=== PATIENT | female | born 1990 | race American Indian/Alaskan Native ===

== ENCOUNTER → 2016-08-12 | Outpatient (CLI) | payer BC ==
--- NOTE | 2016-08-12 15:58 | US ---
Examination: Greater than 14 weeks transabdominal ultrasound with color Doppler and M-mode evaluatio n. HISTORY: FINDINGS: LMP is 03/05/2016 EVALUATION: Anterior placenta with a cephalic lie and grade 1. Visually amniotic fluid is with in normal limits. Three-vessel cord is seen. Ventricles are within normal limits. Four chamber heart is noted. Heart rate is 145 beats per minute. BIOMETRY AND GESTATIONAL AGE: Biparietal diameter 5.3 cm. The abdominal circumference measures 17.8 cm. The femoral length is 4.0 cm with head circumference of 20.5 cm. Gestational age is 22 weeks and 3 days. The expected date of delivery is approximately 12/13/2016. Fetus weight is 522 grams. Overall the fetus is within the 32nd percentile. Other detail anatomy summarized into PACs sheet after the images. No anatomical anomalies. IMPRESSION: Single active IU with cephalic fetus. Anterior placenta with grade 1, no placenta previa. No anomalies are seen. Amniotic fluid appears within normal limits.
--- NOTE | 2016-08-18 17:26 | US ---
Examination: Greater than 14 weeks transabdominal ultrasound with color Doppler and M-mode evaluation. HISTORY: FINDINGS: LMP is 03/05/2016 EVALUATION: Anterior placenta with a cephalic lie and grade 1. Visually amniotic fluid is within normal limits. Three-vessel cord is seen. Ventricles are within normal limits. Four chamber heart is noted. Heart rate is 145 beats per minute. BIOMETRY AND GESTATIONAL AGE: Biparietal diameter 5.3 cm. The abdominal circumference measures 17.8 cm. The femoral length is 4.0 cm with head circumference of 20.5 cm. Gestational age is 22 weeks and 3 days. The expected date of delivery is approximately 12/13/2016. Fetus weight is 522 grams. Overall the fetus is within the 32nd percentile. Other detail anatomy summarized into PACs sheet after the images. No anatomical anomalies. IMPRESSION: Single active IU with cephalic fetus. Anterior placenta with grade 1, no placenta previa. No anomalies are seen. Amniotic fluid appears within normal limits. MTDD
== END ==
LOC: MW.US 13:50
PROVIDERS: ATTEND Advanced Practice Midwife
DX: Z36 Encounter for antenatal screening of mother (principal); Z34.92 Encounter for supervision of normal pregnancy, unspecified, second trimester
CPT/HCPCS: 76805; 76805-26

== ENCOUNTER 2016-12-05 09:45 | Inpatient (IN) | payer BC ==
[2016-12-05] MEDS ORDERED: Sodium Chloride 0.9% 10 ML Syringe FLUSH PRN (10:03)
[2016-12-05] MEDS ORDERED: Sodium Chloride 0.9% 2.5 ML Syringe FLUSH PRN (10:03)
--- NOTE | 2016-12-05 10:07 | PCM.LDHP ---
L&D History of Present Illness - General Date of Service: 12/05/16 Admit Problem/Dx: Patient Status Order with Admit Dx/Problem 12/05/16 10:03 Patient Status [ADT] Routine Admission Diagnosis/Problem Admission Diagnosis/Problem Source of Information: Patient History Limitations: Reports: No Limitations - History of Present Illness Improves with: Reports: None Worsens with: Reports: None Associated Symptoms: Reports: N - Related Data Allergies/Adverse Reactions: Allergies Allergy/AdvReac Type Severity Reaction Status Date / Time latex Allergy Rash Verified 11/29/16 12:23 sulfamethoxazole Allergy Hives Verified 09/10/13 00:00 [From ] trimethoprim [From ] Allergy Hives Verified 09/10/13 00:00 Home Medications: Home Meds PNV95/Ferrous Fumarate/FA [ Vitamins Tablet] 1 tab PO DAILY 11/29/16 [ History] Past Medical History - Past Health History Medical/Surgical History: Denies Medical/Surgical History Gastrointestinal History: Reports: Other (See Below) Other Gastrointestinal History: 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: Musculoskeletal History: Reports: Fracture Other Musculoskeletal History: hx fx leg at 3 yrs old Psychiatric History: Reports: Depression Dermatologic History: Reports: Eczema - Past Surgical History Head Surgeries/Procedures: Reports: None Social & Family History - Tobacco Use Smoking Status *Q: Former Smoker Years of Tobacco use: 3 Used Tobacco, but Quit: Yes Month Tobacco Last Used: quit smoking 3 yrs ago Second Hand Smoke Exposure: Yes - Alcohol Use Days Per Week of Alcohol Use: 0 - Recreational Drug Use Recreational Drug Use: No H&P Review of Systems - Review of Systems: Review Of Systems: See Below General: Reports: No Symptoms HEENT: Reports: No Symptoms Pulmonary: Reports: No Symptoms Cardiovascular: Reports: No Symptoms Gastrointestinal: Reports: No Symptoms Genitourinary: Reports: No Symptoms Musculoskeletal: Reports: No Symptoms Skin: Reports: No Symptoms Psychiatric: Reports: No Symptoms Neurological: Reports: No Symptoms Hematologic/Lymphatic: Reports: No Symptoms Immunologic: Reports: No Symptoms L&D Exam - Exam Exam: See Below - Vital Signs Weight: 77.111 kg - OB Specific Fundal Height In cm: 38 Contraction Intensity: Mild Movement: Active Heart Tones: Present Presentation: Vertex - Exam General: Alert, Oriented HEENT: PERRLA, Conjunctiva Clear, EACs Clear, EOMI, Hearing Intact, Mucosa Moist & Central, Nares Patent, Normal Nasal Septum, Posterior Pharynx Clear, TMs Clear Neck: Supple, Trachea Midline Lungs: Clear to Auscultation, Normal Respiratory Effort Cardiovascular: Regular Rate, Regular Rhythm GI/Abdominal Exam: Normal Bowel Sounds, Soft, Non-Tender, No Organomegaly, No Distention, No Abnormal Bruit, No Mass, Pelvis Stable Rectal Exam: Normal Exam, Normal Rectal Tone Genitourinary: Normal external exam, Normal bimanual exam, Normal speculum exam Back Exam: Normal Inspection, Full Range of Motion Extremities: Normal Inspection, Normal Range of Motion, Non-Tender, No Pedal Edema, Normal Capillary Refill Skin: Warm, Dry, Intact Neurological: Cranial Nerves Intact, Reflexes Equal Bilateral Psychiatric: Alert, Normal Affect, Normal Mood Problem List Initiated/Reviewed/Updated: Yes Orders Last 24hrs: Active Orders 24 hr Category Date Time Status Patient Status [ADT] Routine ADT 12/05/16 10:03 Ordered Non Stress Test [RC] PER UNIT ROUTINE Care 12/05/16 10:03 Ordered Procedure Site Prep Instruct [RC] ASDIRECTED Care 12/05/16 10:03 Ordered Up ad Tori [RC] ASDIRECTED Care 12/05/16 10:03 Ordered Verify Patient Consent Obtain [RC] ASDIRECTED Care 12/05/16 10:03 Ordered Vital Signs [RC] PER UNIT ROUTINE Care 12/05/16 10:03 Ordered CBC W/O DIFF,HEMOGRAM [HEME] Routine Lab 12/05/16 10:03 Ordered TYPE AND SCREEN [BBK] Routine Lab 12/05/16 10:03 Ordered Citric Acid/Sodium Citrate [Bicitra Solution] Med 12/05/16 10:15 Ordered 30 ml PO .ONCE Lactated Ringers [Ringers, Lactated] 1,000 ml Med 12/05/16 10:15 Ordered IV .BOLUS Sodium Chloride 0.9% [Saline Flush] Med 12/05/16 10:03 Ordered 10 ml FLUSH ASDIRECTED PRN Sodium Chloride 0.9% [Saline Flush] Med 12/05/16 10:03 Ordered 2.5 ml FLUSH ASDIRECTED PRN Peripheral IV Insertion Adult [OM.PC] Routine Oth 12/05/16 10:03 Ordered Schedule Procedure [COMM] Per Unit Routine Oth 12/05/16 10:03 Ordered Resuscitation Status Routine Resus Stat 12/05/16 10:03 Ordered Assessment/Plan Comment:: Term admitted for elective repeat section
[2016-12-05] MEDS ORDERED: Citric Acid/Sodium Citrate Solution 30 ML Cup PO SCH (10:15)
[2016-12-05] MEDS: Lactated Ringers 1,000 ML IV SCH ×2 (10:25→11:13)
[2016-12-05] MEDS ORDERED: Morphine PF 10 MG/10 ML SDV ONE (10:41)
[2016-12-05] MEDS ORDERED: Oxytocin/Lactated Ringers 30 UNIT/500 ML BAG ONE (10:54)
--- NOTE | 2016-12-05 11:15 | PCM.PREANE ---
Preanesthetic Assessment - Anesthesia/Transfusion/Family Hx Anesthesia History: Prior Anesthesia Without Reaction (Epidural only) Family History of Anesthesia Reaction: No Transfusion History: No Prior Transfusion(s) Intubation History: Unknown - Review of Systems General: No Symptoms Pulmonary: No Symptoms Cardiovascular: No Symptoms Gastrointestinal: No Symptoms Neurological: No Symptoms Other: Reports: Anxiety (Pt states she is anxious - happy that her significant other will be with her during the and discussed sedation after baby is out) - Physical Assessment Height: 5 ft 6 in Weight: 170 lb ASA Class: 2 Mental Status: Alert & Oriented x3 Airway Class: Mallampati = 2 Dentition: Reports: Normal Dentition Thyro-Mental Finger Breadths: 3 Mouth Opening Finger Breadths: 3 ROM/Head Extension: Full Lungs: Clear to Auscultation, Normal Respiratory Effort Cardiovascular: Regular Rate, Regular Rhythm - Lab Values: Laboratory Last Values WBC 11.34 K/uL (4.0-11.0) H 12/05/16 10:22 RBC 4.43 M/uL (4.30-5.90) 12/05/16 10:22 Hgb 13.1 g/dL (12.0-16.0) 12/05/16 10:22 Hct 38.8 % (36.0-46.0) 12/05/16 10:22 MCV 87.6 fL (80.0-98.0) 12/05/16 10:22 MCH 29.6 pg (27.0-32.0) 12/05/16 10:22 MCHC 33.8 g/dL (31.0-37.0) 12/05/16 10:22 RDW Std Deviation 45.6 fl (28.0-62.0) 12/05/16 10:22 RDW Coeff of Curly 14 % (11.0-15.0) 12/05/16 10:22 Plt Count 177 K/uL (150-400) 12/05/16 10:22 MPV 11.40 fL (7.40-12.00) 12/05/16 10:22 Nucleated RBC % 0.0 /100WBC 12/05/16 10:22 Nucleated RBCs # 0 K/uL 12/05/16 10:22 - Allergies Allergies/Adverse Reactions: Allergies Allergy/AdvReac Type Severity Reaction Status Date / Time latex Allergy Rash Verified 11/29/16 12:23 sulfamethoxazole Allergy Hives Verified 09/10/13 00:00 [From Septra] trimethoprim [From Septra] Allergy Hives Verified 09/10/13 00:00 - Blood Blood Available: No Product(s) Available: None - Anesthesia Plan Free Text/Narrative:: SAB with backup GA if failed block - Acknowledgements Anesthesia Type Planned: Spinal Pt an Appropriate Candidate for the Planned Anesthesia: Yes Alternatives and Risks of Anesthesia Discussed w Pt/Guardian: Yes Pt/Guardian Understands and Agrees with Anesthesia Plan: Yes PreAnesthesia Questionnaire - Past Health History Medical/Surgical History: Denies Medical/Surgical History Gastrointestinal History: Reports: Other (See Below) Other Gastrointestinal History: 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: Musculoskeletal History: Reports: Fracture Other Musculoskeletal History: hx fx leg at 3 yrs old Psychiatric History: Reports: Depression Dermatologic History: Reports: Eczema - Past Surgical History Head Surgeries/Procedures: Reports: None - SUBSTANCE USE Smoking Status *Q: Former Smoker Tobacco Use Within Last Twelve Months: No Second Hand Smoke Exposure: Yes Days Per Week of Alcohol Use: 0 Recreational Drug Use History: No - HOME MEDS Home Medications: Home Meds PNV95/Ferrous Fumarate/FA [ Vitamins Tablet] 1 tab PO DAILY 11/29/16 [ History] - CURRENT (IN HOUSE) MEDS Current Meds: Current Medications Citric Acid/Sodium Citrate (Bicitra Solution) 30 ml PO .ONCE TRACIE Last Admin: 12/05/16 10:54 Dose: 30 ml Lactated Ringer's (Ringers, Lactated) 1,000 mls @ 500 mls/hr IV .BOLUS TRACIE Last Admin: 12/05/16 10:25 Dose: 500 mls/hr Sodium Chloride (Saline Flush) 10 ml FLUSH ASDIRECTED PRN PRN Reason: Keep Vein Open Sodium Chloride (Saline Flush) 2.5 ml FLUSH ASDIRECTED PRN PRN Reason: Keep Vein Open Discontinued Medications Oxytocin/Lactated Ringer's (Pitocin In Lr 30 Units/500 Ml) Confirm Administered Dose 30 unit in 500 mls @ as directed .ROUTE .STK-MED ONE Stop: 12/05/16 10:55 Morphine Sulfate (Duramorph Pf) Confirm Administered Dose 10 mg .ROUTE .STK-MED ONE Stop: 12/05/16 10:42
[2016-12-05] MEDS ORDERED: ceFAZolin 2 GM in Premix Bag 1 BAG IV ONE (11:17)
[2016-12-05] MEDS ORDERED: fentaNYL 100 MCG/2 ML SDV ONE (12:06)
[2016-12-05] MEDS ORDERED: ePHEDrine 50 MG/ML SDV ONE (12:06)
[2016-12-05] MEDS ORDERED: Octyl 2-Cyanoacrylate 1 Tube ONE (12:30)
[2016-12-05] MEDS ORDERED: Bisacodyl 10 MG Supp RECTAL PRN (12:34)
[2016-12-05] MEDS ORDERED: diphenhydrAMINE 50 MG/ML SDV IVPUSH PRN (12:34)
[2016-12-05] MEDS ORDERED: Lanolin 100% Cream 7 GM Tube TOP PRN (12:34)
[2016-12-05] MEDS ORDERED: Acetaminophen/oxyCODONE 325-5 MG Tab PO PRN ×2 (12:34→12:49)
--- NOTE | 2016-12-05 12:37 | PCM.OPNOTE ---
- General Post-Op/Procedure Note Date of Surgery/Procedure: 12/05/16 Operative Procedure(s): Primary C/section Pre Op Diagnosis: Term Post-Op Diagnosis: Same Anesthesia Technique: Spinal Primary Surgeon: Abhijeet Serrano EBL in mLs: 700 Complications: None Condition: Good
[2016-12-05] MEDS ORDERED: Lactated Ringers 1,000 ML IV SCH (12:45)
[2016-12-05] MEDS ORDERED: Ondansetron 4 MG/2 ML SDV IVPUSH PRN (12:49)
[2016-12-05] MEDS ORDERED: Nalbuphine 10 MG/1 ML Vial IVPUSH PRN (12:50)
[2016-12-05] MEDS ORDERED: Naloxone 0.4 MG/ML Syringe IVPUSH PRN (12:50)
[2016-12-05] MEDS: Ondansetron 4 MG/2 ML SDV IV PRN ×2 (12:52→19:24)
--- NOTE | 2016-12-05 13:06 | PCM.POSTAN ---
POST ANESTHESIA ASSESSMENT - MENTAL STATUS Mental Status: Alert, Oriented - VITAL SIGNS Pulse Rate: 52 SaO2: 99 Resp Rate: 14 Blood Pressure: 115/70 - RESPIRATORY Respiratory Status: Respiratory Rate WNL, Airway Patent, O2 Saturation Stable, Supplemental Oxygen (per nc) - CARDIOVASCULAR CV Status: Pulse Rate WNL, Blood Pressure Stable - GASTROINTESTINAL GI Status: No Symptoms - PAIN Pain Score: 0 (spinal still intact) - POST OP HYDRATION Hydration Status: Adequate & Stable - OBSERVATIONS Free Text/Narrative:: pt doing better after receiving zofran. VSS. No complaints at this time.
[2016-12-05] MEDS: Ketorolac 30 MG/ML SDV IVPUSH SCH ×2 (13:09→19:12)
--- NOTE | 2016-12-06 00:54 | OR ---
SURGEON: Abhijeet Serrano MD DATE OF PROCEDURE: POSTOPERATIVE DIAGNOSIS: Term , primary low transverse section. POSTOP DIAGNOSIS: Term , primary low transverse section. OPERATION PERFORMED: Primary low transverse section. HEAD OF ART: Palma Bucio RN. ANESTHESIA: Spinal, Linda Quintanilla and Dr. Madden. ESTIMATED BLOOD LOSS: 700 mL. COMPLICATION: None. FINDINGS: Female fetus. score reported to be 9 and 9. Normal uterus, tubes, and ovaries. INDICATION FOR SURGERY: This patient is para 1-0-0-1. She had a previous child delivered vaginally, but she had a fourth degree laceration complicated by dehiscence of the fourth degree incision, which has required multiple repair for her perineal area. The patient elected to have a primary low transverse section at this time. PROCEDURE IN DETAIL: The patient was brought to the OR, properly identified, and after adequate level of spinal anesthesia, with a Fagan catheter in the bladder, the patient prepped and draped in sterile fashion as usual. Time-out was made, and then low transverse Pfannenstiel skin incision was done. Cyril's fascia and rectus fascia were opened in direction of the incision. The 2 recti muscles were and the peritoneal cavity was entered. Bladder flap was raised in the usual manner pushing the bladder away from the lower uterine segment. Low transverse uterine incision was done and extended manually with the hand. The fetus was in a vertex position, delivered this way without any problem. The fetus cried immediately. It was a female and score later on reported to be 9 and 9. The placenta delivered spontaneous, complete, and intact, and then repair of the lower uterine segment was done with 2-0 Vicryl continuous interlocking in 2 layers. The peritoneal cavity evacuated completely from all blood and blood clot and closed with 2-0 Vicryl continuous and 3-0 Vicryl continuous, and then the rectus fascia closed with #1 PDS double strand continuous, the Cyril's fascia with 3-0 Vicryl continuous, and the skin closed skin clips, Insorb, and Dermabond. Instrument and sponge count was correct. The patient tolerated the procedure well and went to recovery room in stable general condition. FELIPE / OZ /[id number]
[2016-12-06] MEDS: Ketorolac 30 MG/ML SDV IVPUSH SCH ×3 (01:33→13:10)
[2016-12-06] MEDS: Ondansetron 4 MG/2 ML SDV IV PRN ×2 (01:34→07:55)
--- NOTE | 2016-12-06 07:46 | PCM48HPAN ---
Post Anesthesia Note - EVALUATION WITHIN 48HRS OF ANESTHETIC Vital Signs in Normal Range: Yes Patient Participated in Evaluation: Yes Respiratory Function Stable: Yes Airway Patent: Yes Cardiovascular Function Stable: Yes Hydration Status Stable: Yes Pain Control Satisfactory: Yes Nausea and Vomiting Control Satisfactory: Yes Mental Status Recovered: Yes - COMMENTS/OBSERVATIONS Free Text/Narrative:: Pt doing well this AM. VSS. No reports of nausea and pt reports good pain control with scheduled medications. No apparent anesthesia complications.
[2016-12-06] MEDS: Docusate Sodium 100 MG Cap PO SCH ×2 (08:04→21:08)
--- NOTE | 2016-12-06 10:02 | PCM.PNPP ---
- General Info Date of Service: 12/06/16 Functional Status: Reports: Pain Controlled - Review of Systems General: Reports: No Symptoms HEENT: Reports: No Symptoms Pulmonary: Reports: No Symptoms Cardiovascular: Reports: No Symptoms Gastrointestinal: Reports: No Symptoms Genitourinary: Reports: No Symptoms Musculoskeletal: Reports: No Symptoms Skin: Reports: No Symptoms Neurological: Reports: No Symptoms Psychiatric: Reports: No Symptoms - General Info Date of Service: 12/06/16 - Patient Data Vital Signs - Most Recent: Last Vital Signs Temp 36.6 C 12/06/16 08:00 Pulse 71 12/06/16 08:00 Resp 16 12/06/16 08:00 BP 111/61 12/06/16 08:00 Pulse Ox 94 L 12/06/16 08:00 Weight - Most Recent: 77.111 kg I&O - Last 24 Hours: Intake & Output 12/05/16 12/06/16 12/06/16 22:59 06:59 14:59 Output Total 1900 Balance -1900 Lab Results - Last 24 Hours: Laboratory Results - last 24 hr 12/05/16 12/05/16 12/06/16 Range/Units 10:22 10:22 05:55 WBC 11.34 H (4.0-11.0) K/uL RBC 4.43 (4.30-5.90) M/uL Hgb 13.1 11.5 L (12.0-16.0) g/dL Hct 38.8 34.9 L (36.0-46.0) % MCV 87.6 (80.0-98.0) fL MCH 29.6 (27.0-32.0) pg MCHC 33.8 (31.0-37.0) g/dL RDW Std Deviation 45.6 (28.0-62.0) fl RDW Coeff of Curly 14 (11.0-15.0) % Plt Count 177 (150-400) K/uL MPV 11.40 (7.40-12.00) fL Nucleated RBC % 0.0 /100WBC Nucleated RBCs # 0 K/uL Blood Type A POSITIVE Antibody Screen NEGATIVE Med Orders - Current: Current Medications Bisacodyl (Dulcolax) 10 mg RECTAL .ONCE PRN PRN Reason: Constipation Citric Acid/Sodium Citrate (Bicitra Solution) 30 ml PO .ONCE TRACIE Last Admin: 12/05/16 10:54 Dose: 30 ml Diphenhydramine HCl (Benadryl) 25 mg IVPUSH Q6H PRN PRN Reason: Itching or Nausea Last Admin: 12/05/16 14:37 Dose: 25 mg Docusate Sodium (Colace) 100 mg PO BID [facility] Last Admin: 12/06/16 08:04 Dose: 100 mg Emollient Ointment (Lansinoh Hpa) 0 gm TOP ASDIRECTED PRN PRN Reason: Sore Nipples Lactated Ringer's (Ringers, Lactated) 1,000 mls @ 500 mls/hr IV .BOLUS [facility] Last Admin: 12/05/16 11:13 Dose: 500 mls/hr Lactated Ringer's (Ringers, Lactated) 1,000 mls @ 125 mls/hr IV ASDIRECTED [facility] Last Admin: 12/05/16 14:43 Dose: 125 mls/hr Ibuprofen (Motrin) 800 mg PO Q8H PRN PRN Reason: mild pain or fever Ketorolac Tromethamine (Toradol) 30 mg IVPUSH Q6H [facility] Stop: 12/06/16 12:46 Last Admin: 12/06/16 08:01 Dose: 30 mg Nalbuphine HCl (Nubain) 2.5 mg IVPUSH Q3H PRN PRN Reason: Pruritis Stop: 12/06/16 12:51 Naloxone HCl (Narcan) 0.1 mg IVPUSH ONETIME PRN PRN Reason: RR<6 WITH STIMULATION Stop: 12/06/16 12:53 Ondansetron HCl (Zofran) 4 mg IV Q4H PRN PRN Reason: Nausea/Vomiting Last Admin: 12/06/16 07:55 Dose: 4 mg Ondansetron HCl (Zofran) 4 mg IVPUSH .ONETIME PRN PRN Reason: Nausea Oxycodone/Acetaminophen (Percocet 325-5 Mg) 1 tab PO Q4H PRN PRN Reason: Pain (moderate 4-6) Oxycodone/Acetaminophen (Percocet 325-5 Mg) 2 tab PO Q4H PRN PRN Reason: Pain (moderate 4-6) Oxycodone/Acetaminophen (Percocet 325-5 Mg) 1 tab PO .Q4HRS PRN PRN Reason: Breakthrough Pain Stop: 12/06/16 12:00 Last Admin: 12/06/16 05:03 Dose: 1 tab Sodium Chloride (Saline Flush) 10 ml FLUSH ASDIRECTED PRN PRN Reason: Keep Vein Open Sodium Chloride (Saline Flush) 2.5 ml FLUSH ASDIRECTED PRN PRN Reason: Keep Vein Open Discontinued Medications Ephedrine Sulfate (Ephedrine Sulfate) Confirm Administered Dose 50 mg .ROUTE .STK-MED ONE Stop: 12/05/16 12:07 Fentanyl (Sublimaze) Confirm Administered Dose 100 mcg .ROUTE .STK-MED ONE Stop: 12/05/16 12:07 Oxytocin/Lactated Ringer's (Pitocin In Lr 30 Units/500 Ml) Confirm Administered Dose 30 unit in 500 mls @ as directed .ROUTE .STK-MED ONE Stop: 12/05/16 10:55 Cefazolin Sodium/Dextrose 2 gm (/ Premix) 50 mls @ 100 mls/hr IV ONETIME ONE Stop: 12/05/16 11:46 Morphine Sulfate (Duramorph Pf) Confirm Administered Dose 10 mg .ROUTE .STK-MED ONE Stop: 12/05/16 10:42 Octyl Cyanoacrylate (Dermabond Advance) Confirm Administered Dose 1 applic .ROUTE .STK-MED ONE Stop: 12/05/16 12:31 - Infant Interaction Infant Disposition, : in Room with Family Infant Interaction: Holding Feeding: Attempted ; Nursed Fair/Poor Support Person: - Recovery Exam Fundal Tone: Firm Fundal Level: 1 Fingerbreadths Below Umbilicus Fundal Placement: Midline Lochia Amount: Small Lochia Color: Rubra/Red Perineum Description: Intact, Minimal Bruising/Swelling Episiotomy/Laceration: None Bladder Status: Indwelling Catheter in Place Urinary Elimination: Indwelling Catheter - Exam General: Alert, Oriented HEENT: Pupils Equal Neck: Supple Lungs: Clear to Auscultation, Normal Respiratory Effort Cardiovascular: Regular Rate, Regular Rhythm GI/Abdominal Exam: Normal Bowel Sounds, Soft, Non-Tender, No Organomegaly, No Distention, No Abnormal Bruit, No Mass, Pelvis Stable Extremities: Normal Inspection, Normal Range of Motion, Non-Tender, No Pedal Edema, Normal Capillary Refill Skin: Warm, Dry, Intact Wound/Incisions: Healing Well Neurological: No New Focal Deficit Psy/Mental Status: Alert, Normal Affect, Normal Mood - Problem List Review Problem List Initiated/Reviewed/Updated: Yes - My Orders Last 24 Hours: My Active Orders 12/05/16 10:03 Up ad Tori [RC] ASDIRECTED Sodium Chloride 0.9% [Saline Flush] 10 ml FLUSH ASDIRECTED PRN Sodium Chloride 0.9% [Saline Flush] 2.5 ml FLUSH ASDIRECTED PRN Peripheral IV Insertion Adult [OM.PC] Routine Schedule Procedure [COMM] Per Unit Routine Resuscitation Status Routine 12/05/16 10:15 Citric Acid/Sodium Citrate [Bicitra Solution] 30 ml PO .ONCE Lactated Ringers [Ringers, Lactated] 1,000 ml IV .BOLUS 12/05/16 12:34 Patient Status [ADT] Routine Ambulate [RC] PER UNIT ROUTINE Communication Order [RC] PER UNIT ROUTINE Communication Order [RC] PER UNIT ROUTINE Communication Order [RC] Per Unit Routine May Shower [RC] ASDIRECTED RT Incentive Spirometry [RC] Q2HWA Acetaminophen/oxyCODONE [Percocet 325-5 MG] 1 tab PO Q4H PRN Acetaminophen/oxyCODONE [Percocet 325-5 MG] 2 tab PO Q4H PRN Bisacodyl [Dulcolax] 10 mg RECTAL .ONCE PRN Ibuprofen [Motrin] 800 mg PO Q8H PRN Lanolin [Lansinoh HPA] See Dose Instructions TOP ASDIRECTED PRN Ondansetron [Zofran] 4 mg IV Q4H PRN diphenhydrAMINE [Benadryl] 25 mg IVPUSH Q6H PRN Assess Lochia [WOMSER] Per Unit Routine Assess Uterine Involution [WOMSER] Per Unit Routine Breast Pump [WOMSER] Per Unit Routine Peripheral IV Discontinue [OM.PC] Routine Sequential Compression Device [OM.PC] Per Unit Routine 12/05/16 12:35 Antiembolic Devices [RC] PER UNIT ROUTINE 12/05/16 12:45 Ketorolac [Toradol] 30 mg IVPUSH Q6H Lactated Ringers [Ringers, Lactated] 1,000 ml IV ASDIRECTED 12/05/16 21:00 Docusate Sodium [Colace] 100 mg PO BID 08/29/17 Breakfast Regular Diet [DIET] - Plan Plan:: Term admitted for elective repeat section
[2016-12-06] MEDS: Acetaminophen/oxyCODONE 325-5 MG Tab PO PRN ×2 (17:31→21:48)
[2016-12-06] MEDS: Ibuprofen 800 MG Tab PO PRN (21:09)
[2016-12-07] MEDS: Acetaminophen/oxyCODONE 325-5 MG Tab PO PRN ×3 (03:35→11:59)
[2016-12-07 04:26] VITALS: BP 118/70
[2016-12-07] MEDS: Ibuprofen 800 MG Tab PO PRN (07:00)
[2016-12-07] MEDS: Docusate Sodium 100 MG Cap PO SCH (08:05)
--- NOTE | 2016-12-07 09:03 | PCM.DCSUM1 ---
Discharge Summary - Discharge Data Discharge Date: 12/07/16 Discharge Disposition: Home, Self-Care 01 Condition: Good - Patient Summary/Data Operative Procedure(s) Performed: Primary C/section - Patient Instructions Diet: Usual Diet as Tolerated Showering/Bathing: August Shower Wound/Incision Care: Keep Operative Site/Wound Site Clean and Dry Notify Provider of: Fever, Increased Pain, Nausea and/or Vomiting - Discharge Plan Prescriptions/Med Rec: oxyCODONE HCl/Acetaminophen [Percocet 7.5-325 mg Tablet] 1 each PO Q6HR PRN #30 tablet PRN Reason: Pain Home Medications: Home Meds PNV95/Ferrous Fumarate/FA [ Vitamins Tablet] 1 tab PO DAILY 11/29/16 [ History] oxyCODONE HCl/Acetaminophen [Percocet 7.5-325 mg Tablet] 1 each PO Q6HR PRN #30 tablet 12/07/16 [Rx] Patient Handouts: Care After Delivery Referrals: [facility] [Outside] Susan Mckoy CNM [Primary Care Provider] - ( week- December 13 @ 3:00pm w/ Dr. Serrano week- January 16 @ 1:30pm w/ Susan Mckoy ) - General Info Date of Service: 12/07/16 Functional Status: Reports: Pain Controlled - Review of Systems General: Reports: No Symptoms HEENT: Reports: No Symptoms Pulmonary: Reports: No Symptoms Cardiovascular: Reports: No Symptoms Gastrointestinal: Reports: No Symptoms Genitourinary: Reports: No Symptoms Musculoskeletal: Reports: No Symptoms Skin: Reports: No Symptoms Neurological: Reports: No Symptoms Psychiatric: Reports: No Symptoms - Patient Data Vitals - Most Recent: Last Vital Signs Temp 36.4 C 12/07/16 03:30 Pulse 72 12/07/16 03:30 Resp 16 12/07/16 03:30 BP 118/70 12/07/16 03:30 Pulse Ox 97 12/07/16 03:30 Weight - Most Recent: 77.111 kg I&O - Last 24 hours: Intake & Output 12/06/16 12/07/16 12/07/16 22:59 06:59 14:59 Output Total 660 Balance -660 Med Orders - Current: Current Medications Bisacodyl (Dulcolax) 10 mg RECTAL .ONCE PRN PRN Reason: Constipation Citric Acid/Sodium Citrate (Bicitra Solution) 30 ml PO .ONCE TRACIE Last Admin: 12/05/16 10:54 Dose: 30 ml Diphenhydramine HCl (Benadryl) 25 mg IVPUSH Q6H PRN PRN Reason: Itching or Nausea Last Admin: 12/05/16 14:37 Dose: 25 mg Docusate Sodium (Colace) 100 mg PO BID [facility] Last Admin: 12/07/16 08:05 Dose: 100 mg Emollient Ointment (Lansinoh Hpa) 0 gm TOP ASDIRECTED PRN PRN Reason: Sore Nipples Lactated Ringer's (Ringers, Lactated) 1,000 mls @ 500 mls/hr IV .BOLUS [facility] Last Admin: 12/05/16 11:13 Dose: 500 mls/hr Lactated Ringer's (Ringers, Lactated) 1,000 mls @ 125 mls/hr IV ASDIRECTED [facility] Last Admin: 12/05/16 14:43 Dose: 125 mls/hr Ibuprofen (Motrin) 800 mg PO Q8H PRN PRN Reason: mild pain or fever Last Admin: 12/07/16 07:00 Dose: 800 mg Ondansetron HCl (Zofran) 4 mg IV Q4H PRN PRN Reason: Nausea/Vomiting Last Admin: 12/06/16 07:55 Dose: 4 mg Ondansetron HCl (Zofran) 4 mg IVPUSH .ONETIME PRN PRN Reason: Nausea Oxycodone/Acetaminophen (Percocet 325-5 Mg) 1 tab PO Q4H PRN PRN Reason: Pain (moderate 4-6) Oxycodone/Acetaminophen (Percocet 325-5 Mg) 2 tab PO Q4H PRN PRN Reason: Pain (moderate 4-6) Last Admin: 12/07/16 08:06 Dose: 2 tab Sodium Chloride (Saline Flush) 10 ml FLUSH ASDIRECTED PRN PRN Reason: Keep Vein Open Sodium Chloride (Saline Flush) 2.5 ml FLUSH ASDIRECTED PRN PRN Reason: Keep Vein Open Discontinued Medications Ephedrine Sulfate (Ephedrine Sulfate) Confirm Administered Dose 50 mg .ROUTE .[facility]-MED ONE Stop: 12/05/16 12:07 Fentanyl (Sublimaze) Confirm Administered Dose 100 mcg .ROUTE .STK-MED ONE Stop: 12/05/16 12:07 Oxytocin/Lactated Ringer's (Pitocin In Lr 30 Units/500 Ml) Confirm Administered Dose 30 unit in 500 mls @ as directed .ROUTE .STK-MED ONE Stop: 12/05/16 10:55 Cefazolin Sodium/Dextrose 2 gm (/ Premix) 50 mls @ 100 mls/hr IV ONETIME ONE Stop: 12/05/16 11:46 Ketorolac Tromethamine (Toradol) 30 mg IVPUSH Q6H TRACIE Stop: 12/06/16 12:46 Last Admin: 12/06/16 13:10 Dose: 30 mg Morphine Sulfate (Duramorph Pf) Confirm Administered Dose 10 mg .ROUTE .STK-MED ONE Stop: 12/05/16 10:42 Nalbuphine HCl (Nubain) 2.5 mg IVPUSH Q3H PRN PRN Reason: Pruritis Stop: 12/06/16 12:51 Naloxone HCl (Narcan) 0.1 mg IVPUSH ONETIME PRN PRN Reason: RR<6 WITH STIMULATION Stop: 12/06/16 12:53 Octyl Cyanoacrylate (Dermabond Advance) Confirm Administered Dose 1 applic .ROUTE .STK-MED ONE Stop: 12/05/16 12:31 Oxycodone/Acetaminophen (Percocet 325-5 Mg) 1 tab PO .Q4HRS PRN PRN Reason: Breakthrough Pain Stop: 12/06/16 12:00 Last Admin: 12/06/16 05:03 Dose: 1 tab - Exam General: Reports: Alert, Oriented HEENT: Reports: Pupils Equal, Pupils Reactive, EOMI, Mucous Membr. Moist/[place] Neck: Reports: Supple Lungs: Reports: Clear to Auscultation, Normal Respiratory Effort Cardiovascular: Reports: Regular Rate, Regular Rhythm GI/Abdominal Exam: Normal Bowel Sounds, Soft, Non-Tender, No Organomegaly, No Distention, No Abnormal Bruit, No Mass, Pelvis Stable (Female) Exam: Normal External Exam, Normal Speculum Exam, Normal Bimanual Exam Rectal (Female) Exam: Normal Exam, Normal Rectal Tone Back Exam: Reports: Normal Inspection, Full Range of Motion Extremities: Normal Inspection, Normal Range of Motion, Non-Tender, No Pedal Edema, Normal Capillary Refill Skin: Reports: Warm, Dry, Intact Wound/Incisions: Reports: Healing Well Neurological: Reports: No New Focal Deficit Psy/Mental Status: Reports: Alert, Normal Affect, Normal Mood *Q Meaningful Use (DIS) - VTE *Q VTE Criteria *Q: - Stroke *Q Stroke Criteria *Q: - AMI *Q AMI Criteria *Q:
== END 2016-12-07 12:45 | disposition home or self-care (01) | DRG 540 ==
LOC: MW.OB 09:45
PROVIDERS: ADMIT Obstetrics & Gynecology; ATTEND Obstetrics & Gynecology
PROC: 10D00Z1 Extraction of Products of Conception, Low, Open Approach (ICD-10-PCS; principal; 2016-12-05)
DX: O82 Encounter for cesarean delivery without indication (principal); Z3A.39 39 weeks gestation of pregnancy; Z37.0 Single live birth
CPT/HCPCS: 01961; 36415; 59025; 85014; 85018; 85027; 86850; 86900; 86901; A9270-GY; J0690; J1200; J1885; J2270; J2405; J3010; J7120